=== PATIENT | female | born 1950 | race Caucasian/White ===

== ENCOUNTER 2018-08-16 10:00 | Emergency (ER) | payer OTHER ==
[~2018-08-16] VITALS: Ht 160 cm; Wt 54.4 kg
--- OUTSIDE RECORDS SUMMARY | 2018-08-16 10:03 | XMS REPORT | Summary of Care ---
Author Author [facility] [place] Organization [facility] [place] Address Unknown Phone Unavailable Encounter HQ Encntr_alias(FIN) [id number] Date(s): 10/03/17 - 10/03/17 [facility] [place] [address] [place] [phone] Encounter Diagnosis Asymptomatic menopausal state (Final) - 10/10/17 Age-related osteoporosis without current pathological fracture (Final) - Discharge Disposition: Home or Self Care Attending Physician: Adalberto Taylor MD Vital Signs No data available for this section Problem List No data available for this section Allergies, Adverse Reactions, Alerts No data available for this section Medications No data available for this section Results No data available for this section Immunizations No data available for this section Procedures No data available for this section Social History No data available for this section Assessment and Plan No data available for this section
--- OUTSIDE RECORDS SUMMARY | 2018-08-16 10:03 | XMS REPORT | Summary of Care ---
Author Author [facility] [place] Organization [facility] [place] Address Unknown Phone Unavailable Encounter HQ Encntr_alias(FIN) [id number] Date(s): 09/27/17 - 09/27/17 [facility] [place] [address] [place] [phone] Encounter Diagnosis Encounter for screening mammogram for malignant neoplasm of breast (Final) - 09/29/17 Discharge Disposition: Home or Self Care Attending Physician: Isrrael Mendez DC Vital Signs No data available for this [...]
--- OUTSIDE RECORDS SUMMARY | 2018-08-16 10:03 | XMS REPORT | Continuity of Care Document ---
Author Author [facility] Address Unknown Phone Unavailable Problems Problem Status Onset Date Classification Date Reported Comments Source Asymptomatic menopausal state 10/11/2017 01/09/2018 [facility] [place] Encounter for screening mammogram for malignant neoplasm of breast 09/30/2017 01/03/2018 [facility] [place] Z12.31 - ENCNTR SCREEN MAMMOGRAM FOR MA Active 09/15/2017 [facility] [place] Age-related osteoporosis without current pathological fracture 01/09/2018 [facility] [place] Medications Medication Details Route Status Patient Instructions Ordering Provider Order Date Source Allergies, Adverse Reactions, Alerts Substance Category Reaction Severity Reaction type Status Date Reported Comments Source Immunizations Immunization Date Given Site Status Last Updated Comments Source Results Order Name Results Value Reference Range Date Interpretation Comments Source Bone Density DXA [employer] [place] Bone Density DXA [employer] MA BONE DENSITY ASSESSMENT: 10/03/2017 CLINICAL DATA: Perimenopausal and clinical risk for osteoporosis. Asymptomatic Menopausal State/Z78.0 RISK FACTORS: race. FINDINGS: Bone density evaluation was performed 10/03/2017 on the right femur neck using a Hologic unit. The BMD average for the exam is 0.536 g/cm2. The T-score is -2.80 and the Z-score is 1.30. This matches the World Health Organization's criteria for osteoporosis and places the patient at a high risk for fracture. An additional bone density evaluation was performed 10/03/2017 on the left femur neck using a Hologic unit. The BMD average for the exam is 0.549 g/cm2. The T- score is -2.70 and the Z-score is -1.20. This matches the World Health Organization's criteria for osteoporosis and places the patient at a high risk for fracture. An additional bone density evaluation was performed 10/03/2017 on the right hip using a Hologic unit. The BMD average for the exam is 0.575 g/cm2. The T-score is -3.00 and the Z-score is -1.80. This matches the World Health Organization's criteria for osteoporosis and places the patient at a high risk for fracture. An additional bone density evaluation was performed 10/03/2017 on the left hip using a Hologic unit. The BMD average for the exam is 0.530 g/cm2. The T-score is -3.40 and the Z-score is -2.10. This matches the World Health Organization's criteria for osteoporosis and places the patient at a high risk for fracture. An additional bone density evaluation was performed 10/03/2017 on the AP L1-L4 region of spine using a Hologic unit. The BMD average for the exam is 0.553 g/cm2. The T-score is -4.50 and the Z-score is -2.70. This matches the World Health Organization's criteria for osteoporosis and places the patient at a high risk for fracture. IMPRESSION: OSTEOPOROSIS Patient is at high risk for fracture. Patient consult w/primary care provider is recommended. Leena Mark M.D. wi/susie:10/03/2017 09:55:12 [employer](s): Deepthi CRAMER(Luna)(M), [facility] 10/03/2017 - - Read by: Leena Mark MD Dictated Date/time: 10/03/17 09:55 Electronically Signed by: Leena Makr MD 10/03/17 09:55 FINAL REPORT [facility] Breast Mammo Scrn ADDISON incl CAD MA Breast Mammo Scrn ADDISON incl CAD MA BILATERAL DIGITAL SCREENING MAMMOGRAM WITH CAD: 09/27/2017 CLINICAL: /Z12.31. Current study was evaluated with a Computer Aided Detection (CAD) system. COMPARISON:No prior exams were available for comparison. TECHNIQUE: Mammographic views were obtained using digital acquisition. Current study was also evaluated with a Computer Aided Detection (CAD) system. FINDINGS: The tissue of both breasts is heterogeneously dense, which could obscure detection of small masses. No significant masses, calcifications, or other findings are seen in either breast. Note that Ms Yen both states on her history sheet that she has no problems and that she has a nipple discharge. She does not say how long she has had the nipple discharge. If she truly does have a nipple discharge, if it is recent in origin, and particularly if it is red, pink, or brown in color, further evaluation may be warranted. IMPRESSION: NEGATIVE RECOMMENDATION:There is no mammographic evidence of malignancy. A 1 year screening mammogram is recommended.(09/28/2018) This exam was interpreted at [id number] at [facility] Location. Note the suggestion for possible further evaluation of nipple discharge. Professional services are provided by the [facility] Division of Diagnostic Imaging. Tonya Juarez M.D. th/:09/28/2017 16:05:34 [employer] Sports Coach(s): Nicki Colby letter sent: BI-RADS 1/2 Dense Mammogram BI-RADS: 1 Negative 09/27/2017 - - Read by: Tonya Juarez MD Dictated Date/time: 09/28/17 16:05 Electronically Signed by: Tonya Juarez MD 09/28/17 16:05 FINAL REPORT [facility] [place] Vital Signs Vital Sign Value Date Comments Source Encounters Location Location Details Encounter Type Encounter Number Reason For Visit Attending Provider ADM Date DC Date Status Source [facility] [place] [facility] [id number] Isrrael Mrozinski 09/27/2017 09/28/2017 [facility] [place] [facility] [place] [facility] [id number] Adalberto Dalton Jr 10/03/2017 10/04/2017 [facility] [place] Procedures Procedure Code Date Perfomer Comments Source
--- NOTE | 2018-08-16 10:23 | NUR ---
VISUAL ACUITY DONE BY MARINE DONATO DURING TRIAGE AND CHARTED. INFORMED BY MARINE DONATO THAT PH LEVEL OF SHAMPOO IS 8. CHECKED BY MARINE DONATO IN TRIAGE.
[2018-08-16] MEDS ORDERED: FLUORESCEIN SOD(OPTH) 1 MG STRP OP ONE (10:30)
[2018-08-16] MEDS ORDERED: PROPARACAINE HCL 0.5% OP SOLN 15 ML BTL OP ONE (10:30)
--- NOTE | 2018-08-16 10:30 | NUR ---
POISON CONTROL NOTIFIED, SPOKE TO JOAQUIN AT [facility][1]. CASE # [id number]. INFORMED TO IRRIGATE FOR 15 MINS IF NOT ALREADY DONE, CHECK FOR AN ABRASION THEN F/U WITH OPTHAMOLOGIST. INFORMED MARINE DONATO WELL BRIGHT [facility] PT'S PRIMARY NURSE.
[2018-08-16] MEDS ORDERED: TETRACAINE HCL 0.5% OPTH SOLN 4 ML BTL OP ONE ×2 (10:45→11:30)
[2018-08-16] MEDS ORDERED: ERYTHROMYCIN (OPTH) 3.5 GM OINT OP ONE (11:00)
[2018-08-16 11:33] VITALS: BP 124/78
== END 2018-08-16 11:35 | disposition home or self-care (01) ==
LOC: ER 10:00
DX: H57.12 Ocular pain, left eye (principal); H10.212 Acute toxic conjunctivitis, left eye; I10 Essential (primary) hypertension
CPT/HCPCS: 99283